=== PATIENT | female | born 1945 | race Caucasian/White ===

== ENCOUNTER → 2018-03-19 | Day surgery (SDC) | payer MEDICARE, BC | LOC: ENDO/OP 08:42 | PROVIDERS: ATTEND Internal Medicine Gastroenterology | DX: K44.9 Diaphragmatic hernia without obstruction or gangrene (principal); K21.9 Gastro-esophageal reflux disease without esophagitis; Z87.891 Personal history of nicotine dependence; Z79.52 Long term (current) use of systemic steroids; Z79.899 Other long term (current) drug therapy | CPT/HCPCS: 91010 ==

== ENCOUNTER 2018-04-21 08:46 | Outpatient (CLI) | payer MEDICARE, BC ==
[2018-04-21] MEDS ORDERED: ISOVUE-370 76%-LOCM 1 ML ONE (11:17)
== END 2018-04-21 08:47 | disposition home or self-care (01) ==
LOC: BICCT 08:46
PROVIDERS: ATTEND Surgery
DX: K44.9 Diaphragmatic hernia without obstruction or gangrene (principal); N20.0 Calculus of kidney
CPT/HCPCS: 71260; 74160; 82565

== ENCOUNTER 2018-07-06 10:14 | Outpatient (CLI) | payer MEDICARE, BC | END 2018-07-06 10:15 | disposition home or self-care (01) | LOC: BICMAMMO 10:14 | PROVIDERS: ATTEND Internal Medicine Hematology & Oncology | DX: Z13.820 Encounter for screening for osteoporosis (principal); C50.919 Malignant neoplasm of unspecified site of unspecified female breast; M85.89 Other specified disorders of bone density and structure, multiple sites | CPT/HCPCS: 77080 ==

== ENCOUNTER 2018-11-02 06:30 | Outpatient (CLI) | payer MEDICARE, BC ==
[2018-11-02 15:52] LABS: #Eosinphils 0.1 thou/uL (0.0-0.7); #Lymphocytes 2.2 thou/uL (1.20-3.40); #Monocytes 0.8 thou/uL (0.11-0.59); #Neutrophils 8.2 thou/uL (1.40-6.50); %Basophils 0.4 % (0.0-1.0); %Eosinophils 1.3 % (0.0-10.0); %Lymphocytes 19.6 % (21.0-51.0); %Monocytes 6.9 % (0.0-10.0); %Neutrophils 71.9 % (42.0-75.0); Mean Corpuscular HGB CONC 32.1 g/dL (32.0-36.0); Mean Corpuscular Volume 93.5 fL (78.0-98.0); Mean Platelet Volume 7.5 fL (7.4-10.4); Platelet Count 255 thou/uL (130-400); RBC Distribution Width 12.2 % (11.5-14.5); Red Blood Cell (RBC) Count 4.32 mill/uL (4.20-5.40); White Blood Cell (WBC) Count 11.4 thou/uL (4.8-10.8)
[2018-11-02 16:13] LABS: Anion Gap 13 mmol/L (10-20); BUN (Urea Nitrogen) 17 mg/dL (9.8-20.1); Calc. Creatinine Clearance 0 mL/min (70-130); Calcium 10.1 mg/dL (7.8-10.44); Carbon Dioxide 24 mmol/L (23-31); Chloride 107 mmol/L (98-107); Estimated GFR-MDRD 74; Glucose 90 mg/dL (83-110); Potassium 4.3 mmol/L (3.5-5.1); Sodium 140 mmol/L (136-145)
== END 2018-11-02 06:31 | disposition home or self-care (01) ==
LOC: LABBT 06:30
PROVIDERS: ATTEND Surgery
DX: Z01.818 Encounter for other preprocedural examination (principal); K44.9 Diaphragmatic hernia without obstruction or gangrene
CPT/HCPCS: 80048; 85025; 93005; 93010

== ENCOUNTER 2018-11-10 05:58 | Inpatient (IN) | payer MEDICARE, BC ==
[2018-11-02 15:08] VITALS: BMI 33.3
[2018-11-10] MEDS ORDERED: Fentanyl 100 MCG/2 ML VIAL ONE ×5 (06:29→14:33)
[2018-11-10] MEDS ORDERED: Fentanyl 250 MCG/5 ML VIAL ONE (06:43)
[2018-11-10] MEDS ORDERED: CEFAZOLIN 2 GM/50 ML BAG ONE (06:47)
[2018-11-10] MEDS ORDERED: Bupivacaine HCl 0.25%/Epi 0.0005/PF 10 ML VIAL FS ONE (06:48)
[2018-11-10] MEDS ORDERED: Promethazine HCl 25 MG/ML VIAL IM PRN ×2 (09:37→14:34)
[2018-11-10] MEDS ORDERED: Promethazine HCl 25 MG/ML VIAL SLOW IVP PRN (09:37)
[2018-11-10] MEDS ORDERED: Ondansetron HCl/PF 4 MG/2 ML Vial IVP PRN (09:37)
[2018-11-10] MEDS ORDERED: Meperidine HCl/PF 25 MG/ML VIAL ONE (10:00)
[2018-11-10] MEDS ORDERED: Meperidine HCl/PF 25 MG/ML VIAL SLOW IVP PRN (10:24)
--- NOTE | 2018-11-10 11:03 | OP ---
DATE OF PROCEDURE: 11/10/2018 PREOPERATIVE DIAGNOSIS: Paraesophageal hiatal hernia. POSTOPERATIVE DIAGNOSIS: Paraesophageal hiatal hernia. PROCEDURE PERFORMED: Laparoscopic hiatal hernia repair with Yumi fundoplication and placement of Strattice mesh. ANESTHESIA: General. ESTIMATED BLOOD LOSS: 50 mL. COMPLICATIONS: None. FINDINGS: Large hiatal hernia. TECHNIQUE: The patient taken to the operating room and laid supine on the operating room table. After general anesthetic was obtained, the patient was placed in a split leg fashion and her arms and legs were double strapped to the bariatric table. OG tube was used to decompress the stomach. The abdomen was prepped and draped in a sterile fashion. Left subcostal 5 mm Optiview trocar was placed in usual fashion and high-flow pneumoperitoneum was obtained. Left and right abdominal 5-mm ports were placed under direct visualization, 5-mm port was placed 1/3 the distance from the umbilicus to the xiphoid. The subcostal 5 port was switched out to an 8 mm assist port and an additional 5 port was placed just off the patient's right side of the xiphoid. The patient was placed in reverse Trendelenburg position. Short gastrics were taken down from the upper 3rd of the stomach to the left jose r of diaphragm. The left jose r of the diaphragm was dissected entering the mediastinum. The gastrohepatic ligament was opened exposing the right jose r. The right jose r was completely dissected. A circumferential dissection of the esophagus was performed allowing the fundus of the stomach to be brought back down into the abdominal cavity. A Tom was passed posterior to the GE junction, wrapped around the stomach, and held anteriorly using PDS endo-loop. A 48-bougie had been brought in and left in the antrum of the stomach. Circumferential dissection was performed. All adhesions were taken down up into the chest. Interrupted Ethibond sutures were used to close the fascial defect posteriorly, two sutures. No sutures were placed anteriorly. The patient was noted to have weaker than normal tissues at the crura. The fundus of the stomach was able to be wrapped through the posterior window to the patient's right. A Yumi was then formed by pulling up the fundus of the stomach anteriorly and suturing it to the fundus that remains on the left, interrupted Ethibond suture and the tie knot system was used for this as well. The first suture grabbed a small portion of the esophagus at the GE junction. No tension was placed on the sutures during this portion of the procedure. Three sutures were used to perform the wrap. The wrap and GE junction is then retracted up exposing the posterior repair again, 4 x 4 cm piece of stratus perforated mesh was brought in, soaked and placed in the abdominal cavity. It is in an overlay fashion. It is laid over the diaphragmatic repair. Tisseel with the Tissomat was used to fiber and glue the mesh to the posterior crural repair. The bougie was removed. EGD scope was passed in the esophagus, stomach to the level of duodenum without obstruction. There was no significant stenosis at the diaphragmatic hiatus or the GE junction. No obvious injury to any intraabdominal structures. The liver snake retractor, which had been used to retract the liver is then removed under direct visualization without injury. All port sites were infiltrated using local anesthetic. All ports were removed under camera visualization. Pneumoperitoneum was let down. Monocryl and Dermabond used to close all skin incisions. The patient was sent to Recovery in stable condition. All instrument counts, needle counts, lap counts are correct. Job ID: [id number]
[2018-11-10] MEDS ORDERED: Dextrose 5% in Water 1,000 ML IV PRN (14:34)
[2018-11-10] MEDS ORDERED: Dextrose 50% Abboject 50 ML SYRINGE SLOW IVP PRN (14:34)
[2018-11-10] MEDS ORDERED: Acetaminophen 325 MG TAB PO PRN (14:34)
[2018-11-10] MEDS ORDERED: Morphine 2 MG/ML SYRINGE SLOW IVP PRN (14:34)
[2018-11-10] MEDS ORDERED: hydrALAZINE 20 MG/ML VIAL SLOW IVP PRN (14:34)
[2018-11-10] MEDS ORDERED: Hydrocodone-Acetamin 15 ML UDCUP PO PRN (14:34)
[2018-11-10] MEDS ORDERED: Morphine 4 MG/ML VIAL SLOW IVP PRN (14:34)
[2018-11-10] MEDS ORDERED: Ondansetron PF 4 MG/2 ML Vial IVP PRN (14:34)
[2018-11-10] MEDS: Sodium Chloride 0.9% 1,000 ML IV SCH (15:10)
[2018-11-10] MEDS ORDERED: Ketorolac Tromethamine 30 MG/ML VIAL ONE (16:09)
[2018-11-10] MEDS ORDERED: Metoprolol Tartrate 5 MG/5 ML VIAL ONE (16:09)
[2018-11-10] MEDS ORDERED: Succinylcholine Chloride 20 MG/ML 10 ml SYRINGE FS ONE (16:09)
[2018-11-10] MEDS ORDERED: PROPOFOL 200 MG/20 ML VIAL ONE (16:09)
[2018-11-10] MEDS ORDERED: Lidocaine 1% PF 5 ML VIAL ONE (16:09)
[2018-11-10] MEDS ORDERED: Dexamethasone 20 MG/5 ML VIAL ONE (16:09)
[2018-11-10] MEDS ORDERED: Glycopyrrolate 0.2 MG/ML 5 ML SYRINGE ONE (16:09)
[2018-11-10] MEDS ORDERED: Rocuronium Bromide 10 MG/ML (10ML VIAL) ONE (16:09)
[2018-11-10] MEDS ORDERED: Ondansetron PF 4 MG/2 ML Vial ONE (16:09)
[2018-11-10] MEDS ORDERED: Anastrozole 1 MG TAB PO SCH (21:00)
[2018-11-10] MEDS ORDERED: Enoxaparin Sodium 40 MG/0.4 ML SYRINGE SC SCH (21:00)
[2018-11-10] MEDS: Hydroxychloroquine Sulfate 200 MG TAB PO SCH (21:07)
[2018-11-11] MEDS: Sodium Chloride 0.9% 1,000 ML IV SCH (06:23)
[2018-11-11 08:09] VITALS: BP 145/73; TEMP 98.3
[2018-11-11] MEDS: Hydroxychloroquine Sulfate 200 MG TAB PO SCH (09:25)
--- NOTE | 2018-11-11 09:38 | DIS ---
DATE OF ADMISSION: 11/10/2018 DATE OF DISCHARGE: 11/11/2018 ADMITTING DIAGNOSIS: Hiatal hernia. DISCHARGE DIAGNOSIS: Hiatal hernia. PROCEDURE PERFORMED: Laparoscopic hiatal hernia repair with mesh and fundoplication by Dr. Pike without complication. CONDITION ON DISCHARGE: Improved. STAFF: Dr. Pike. HOSPITAL COURSE: On postop day #1, the patient is doing well. She is ambulatory. She is tolerating liquids. Her pain is controlled. She is to be discharged home. She will follow up with me in my office in 2 weeks. DIET: After discharge is to include soup type diet for the next 4 to 5 days, then casserole type diet for 4 to 5 days, then diet as tolerated. She will follow up with me in 2 weeks. Job ID: [id number]
[2018-11-11] MEDS ORDERED: Pantoprazole 40 MG VIAL IVP SCH (14:00)
== END 2018-11-11 11:10 | disposition home or self-care (01) | DRG 328 ==
LOC: SDC 05:58 → 3SE 14:16
PROVIDERS: ADMIT Surgery; ATTEND Surgery
PROC: 0BUT4JZ Supplement Diaphragm with Synthetic Substitute, Percutaneous Endoscopic Approach (ICD-10-PCS; principal; 2018-11-10)
PROC: 0DV44ZZ Restriction of Esophagogastric Junction, Percutaneous Endoscopic Approach (ICD-10-PCS; 2018-11-10)
PROC: 0DJ08ZZ Inspection of Upper Intestinal Tract, Via Natural or Artificial Opening Endoscopic (ICD-10-PCS; 2018-11-10)
DX: K44.9 Diaphragmatic hernia without obstruction or gangrene (principal); K21.9 Gastro-esophageal reflux disease without esophagitis; M19.90 Unspecified osteoarthritis, unspecified site; Z85.3 Personal history of malignant neoplasm of breast; Z98.890 Other specified postprocedural states; Z90.13 Acquired absence of bilateral breasts and nipples
CPT/HCPCS: J0131; J0360; J1100; J1650; J1885; J2001; J2175; J2405; J2704; J3010; Q4130

== ENCOUNTER 2018-12-29 09:50 | Outpatient (CLI) | payer MEDICARE, BC ==
--- NOTE | 2018-12-29 10:33 | RAD ---
PA AND LATERAL CHEST: Indication: History of dyspnea. Comparison: 10-20-18 FINDINGS: The chronic lung changes are stable. Heart size is within normal limits. No acute osseous abnormality is noted. IMPRESSION: Stable examination to the recent comparison. No acute abnormality. POS: [facility]
== END 2018-12-29 09:51 | disposition home or self-care (01) ==
LOC: RAD 09:50
PROVIDERS: ATTEND Internal Medicine Critical Care Medicine
DX: R06.00 Dyspnea, unspecified (principal)
CPT/HCPCS: 71046

== ENCOUNTER 2019-02-15 07:18 | Outpatient (CLI) | payer MEDICARE, BC ==
[~2019-02-15 07:18] MED LIST: ADENOSINE 60 MG/20 ML VIAL ONE
--- NOTE | 2019-02-15 12:50 | NM ---
Nuclear medicine myocardial perfusion scan: 02/15/2019 COMPARISON: None HISTORY: Chest pain TECHNIQUE: SPECT imaging of the left ventricular myocardium obtained during stress and rest following the intravenous administration of 30.7 and 9.9mCi technetium 99 M labeled sestamibi respectively. FINDINGS: No discrete fixed or reversible defect. TID is 0.69. Left ventricular wall motion appears within normal limits. End-diastolic volume is 58 mL and end systolic volume is 9 mL. Left ventricular ejection fraction is estimated at 84%. IMPRESSION: No discrete reversible defect. Normal left ventricular wall motion. Estimated LVEF of 84%.
== END 2019-02-15 07:19 | disposition home or self-care (01) ==
LOC: NM 07:18
PROVIDERS: ATTEND Internal Medicine
DX: R07.9 Chest pain, unspecified (principal)
CPT/HCPCS: 78452; 93017; A9500; J0153

== ENCOUNTER 2019-03-29 09:24 | Outpatient (CLI) | payer MEDICARE, BC ==
--- NOTE | 2019-03-29 10:19 | RAD ---
Esophagram HISTORY: Dysphagia. Prior hernia repair and fundoplication. FINDINGS: Single column barium evaluation shows postoperative changes at the GE junction consistent w ith fundoplication. Very small associated hiatal hernia. Significant decrease in primary and secondary peristalsis of the esophagus. Prominent tertiary contractions. No significant gastroesophageal reflux. A 12 mm barium tablet traversed the esophagus without holdup. Fluoroscopy time 1.5 minutes. IMPRESSION: Postoperative changes. No significant reflux demonstrated. No evidence of obstruction. Prominent presbyesophagus.
== END 2019-03-29 09:25 | disposition home or self-care (01) ==
LOC: RAD 09:24
PROVIDERS: ATTEND Internal Medicine Gastroenterology
DX: K21.9 Gastro-esophageal reflux disease without esophagitis (principal); R13.19 Other dysphagia; Z98.890 Other specified postprocedural states
CPT/HCPCS: 74220

== ENCOUNTER 2019-08-26 09:24 | Outpatient (CLI) | payer MEDICARE, BC ==
--- NOTE | 2019-08-26 10:26 | RAD ---
Barium swallow: 08/26/2019 COMPARISON: 03/29/2019 HISTORY: Dysphagia, sensation of solid foods getting stuck within the upper esophagus FINDINGS: The adjunct instructor radiograph demonstrates mild increased linear interstitial density with no pneumo thorax, pleural fluid, focal consolidation, or alveolar edema. A double contrast barium swallow is performed. There is no evidence for hiatal hernia. No mucosal abn ormality, mass lesion, or stricture is seen. There are a few mildly prominent tertiary contractions of the distal esophagus when the patient is in the RPO position. Primary and secondary peristalsis is mildly delayed. Evaluation of the upper esophagus is normal in the frontal and projection. The patient swallowed a barium tablet which traverses the gastroesophageal junction without delay. Exposure data: 1.2 minutes of fluoroscopic time, 11.14 wang per centimeter squared. IMPRESSION: Grossly unremarkable barium swallow aside from a a few scattered tertiary contractions an d a degree of delay of primary and secondary peristalsis.
== END 2019-08-26 09:25 | disposition home or self-care (01) ==
LOC: RAD 09:24
PROVIDERS: ATTEND Surgery
DX: R13.10 Dysphagia, unspecified (principal); R93.3 Abnormal findings on diagnostic imaging of other parts of digestive tract
CPT/HCPCS: 74220

== ENCOUNTER 2020-03-24 14:20 | Outpatient (CLI) | payer MEDICARE, BC ==
--- NOTE | 2020-03-24 19:18 | BD ---
Exam: DEXA Bone Density 03/24/20 COMPARISON: None. HISTORY: 74-year-old postmenopausal female for screening. FINDINGS: Lumbar Spine: BMD (g/cm2) T-SCORE L1 0.756 -2.1 L2 0.821 -1.9 L3 0.905 -1.6 L4 0.920 -1.3 L1-L4 0.856 -1.7 Left Femoral Neck: 0.719 -1.2 Total Proximal Femur: 0.811 -1.1 IMPRESSION: Osteopenia. This patient has a ten year WHO fracture risk for a major osteoporotic fracture of 21% an d of a hip fracture 4.0%. POS: [facility]
== END 2020-03-24 14:21 | disposition home or self-care (01) ==
LOC: BICMAMMO 14:20
PROVIDERS: ATTEND Internal Medicine Hematology & Oncology
DX: Z13.820 Encounter for screening for osteoporosis (principal); M85.89 Other specified disorders of bone density and structure, multiple sites; Z78.0 Asymptomatic menopausal state
CPT/HCPCS: 77080

== ENCOUNTER 2020-11-09 15:26 | Outpatient (CLI) | payer MEDICARE, BC ==
--- NOTE | 2020-11-09 15:49 | ULT ---
ULTRASOUND OF THE LEFT AXILLA: 11/09/20 HISTORY: Swelling and pain in the left axilla. FINDINGS/IMPRESSION: Sonographic evaluation of the left axilla demonstrates a 1.1 x 0.6 x 0.7 cm hypoechoic nodule with ec hogenic hilum and flow consistent with lymph node. POS: [facility]
== END 2020-11-09 15:27 | disposition home or self-care (01) ==
LOC: BICULT 15:26
PROVIDERS: ATTEND Surgery
DX: R22.32 Localized swelling, mass and lump, left upper limb (principal)
CPT/HCPCS: 76999

== ENCOUNTER 2021-05-31 | Outpatient (CLI) | payer MEDICARE, BC | END 2021-05-31 08:33 | disposition home or self-care (01) | DX: M85.89 Other specified disorders of bone density and structure, multiple sites (principal) | CPT/HCPCS: 77080 ==